=== PATIENT | female | born 1975 | race Caucasian/White ===

== ENCOUNTER 2017-01-26 06:00 | Inpatient (IN) | payer BC ==
[2017-01-26] MEDS ORDERED: TERBUTALINE SULFATE 1 MG/ML VIAL IV PRN (07:39)
[2017-01-26] MEDS ORDERED: OXYTOCIN/RINGERS LACTATE 1,000 ML IV PRN (07:39)
[2017-01-26] MEDS ORDERED: LIDOCAINE 1% 30 ML SDV SC PRN (07:39)
[2017-01-26] MEDS ORDERED: LR 1,000 ML IV PRN (07:39)
[2017-01-26] MEDS ORDERED: OLIVE OIL 118 ML BTL MISC PRN (07:39)
[2017-01-26] MEDS ORDERED: EPSOM SALT 454 GM TP PRN (07:39)
--- NOTE | 2017-01-26 07:43 | OBPROG ---
OBG Progress Note Assessment/Plan: Assessment:cat 1 fhr denies pain no regular contractions 2/50/-2 cephalic at bedside Plan:pitocin per protocol /admit 01/26/17 07:41 Subjective: Denies pain. Non-medicated. Routine requests. Ok for observation with student . - SVE Dilation (cm): 2 Effacement (%): 50 Station: -2 Current Contraction Pattern: Irregular FHR (bpm): 135 FHR Pattern Variability: Moderate FHR Category: 1 - Physical Exam General Appearance: WD/WN, alert, no apparent distress Respiratory: chest non-tender, lungs clear, normal breath sounds Cardiac/Chest: regular rate, rhythm Abdomen: normal bowel sounds Membranes: Intact Extremities: normal range of motion, Lior's sign (negative homens sign) DTR- Lower Extremities: Knee (R): 1+, Knee (L): 1+ Skin: normal color, warm/dry Neuro/Psych: no motor/sensory deficits, alert, normal mood/affect, oriented x 3 ICD10 Worksheet Patient Problems: Problems Problem Status Onset Preeclampsia Acute Vaginal delivery Acute
[2017-01-26] MEDS ORDERED: OXYTOCIN/RINGERS LACTATE 500 ML IV SCH (08:00)
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
[2017-01-26] MEDS ORDERED: LIDOCAINE 1% 30 ML SDV ONE (08:34)
[2017-01-26] MEDS ORDERED: OLIVE OIL 118 ML BTL ONE (08:34)
[2017-01-26] MEDS ORDERED: OXYTOCIN 10 UNIT/ML VIAL ONE (08:35)
[2017-01-26] MEDS ORDERED: TERBUTALINE SULFATE 1 MG/ML VIAL ONE (08:35)
[2017-01-26] MEDS ORDERED: MISOPROSTOL 200 MCG TAB ONE (08:35)
[2017-01-26] MEDS ORDERED: AMMONIA AROMATIC 1 EACH AMP IH ONE (08:35)
[2017-01-26 08:37] LABS: % IMMATURE GRANULYOCYTES 0.7 % (0.0-1.1); ABSOLUTE IMMATURE GRANULOCYTES 0.06 10^3/uL (0.00-0.10); ADD DIFF? NO; ADD MORPH? NO; ADD SCAN? NO; ATYPICAL LYMPHOCYTE FLAG 0 (0-99); FRAGMENT RBC FLAG 0 (0-99); HEMATOCRIT 37.9 % (38.0-47.0); HEMOGLOBIN 13.5 g/dL (12.6-16.3); LEFT SHIFT FLG 0 (0-99); LIPEMIA HEMOLYSIS FLAG 90 (0-99); MEAN CELL HEMOGLOBIN 33.5 pg (27.9-34.1); MEAN CELL HEMOGLOBIN CONCENTR. 35.6 g/dL (32.4-36.7); MEAN PLATELET VOLUME 11.5 fL (8.7-11.7); PLATELET CLUMPS FLAG 0 (0-99); PLATELET COUNT 121 10^3/uL (150-400); RED BLOOD CELL COUNT 4.03 10^6/uL (4.18-5.33); RED CELL DISTRIBUTION WIDTH 12.5 % (11.5-15.2)
--- NOTE | 2017-01-26 11:52 | OBPROG ---
OBG Progress Note Assessment/Plan: Assessment:cat 1 fhr pain at 4 3-5 minutes 2/50/-2 cephalic soft posterior no change/ will recheck in 2h and reattempt to break bag of water just now beginning to feel contractions at bedside pitocin at 12 mu just now feeling pain agreement with POC ambulating intermittantly to assist with labor progress Plan:pitocin per protocol 01/26/17 07:41 01/26/17 11:50 Objective: 01/26/17 08:20 Patient ABO/Rh B POSITIVE 01/26/17 08:20 - SVE Dilation (cm): 2 Effacement (%): 50 Station: -2 Current Contraction Pattern: Regular FHR (bpm): 135 FHR Pattern Variability: Moderate FHR Category: 1 Membranes: Intact ICD10 Worksheet Patient Problems: Problems Problem Status Onset Preeclampsia Acute Vaginal delivery Acute
[2017-01-26 13:51] LABS: ALANINE AMINOTRANSFERASE 56 IU/L (9-52); ALBUMIN 3.4 g/dL (3.5-5.0); ALKALINE PHOSPHATASE 209 IU/L (38-126); ANION GAP 6 mEq/L (8-16); ASPARTATE AMINOTRANSFERASE 48 IU/L (14-46); BILIRUBIN,TOTAL 0.8 mg/dL (0.1-1.4); BILIRUBIN-CONJUGATED 0.4 mg/dL (0.0-0.5); BILIRUBIN-UNCONJUGATED 0.4 mg/dL (0.0-1.1); CALCIUM 8.9 mg/dL (8.5-10.4); CARBON DIOXIDE 20 mEq/l (22-31); CHLORIDE 107 mEq/L (97-110); CREATININE 0.7 mg/dL (0.6-1.0); GLOMERULAR FILTRATION RATE > 60; GLUCOSE 82 mg/dL (70-100); POTASSIUM 4.3 mEq/L (3.5-5.2); SODIUM 133 mEq/L (134-144); TOTAL PROTEIN 6.6 g/dL (6.3-8.2); URIC ACID 3.9 mg/dL (2.5-6.8)
--- NOTE | 2017-01-26 13:52 | OBPROG ---
OBG Progress Note Assessment/Plan: Assessment: 41 y/o @ 39 weeks IOL secondary to AMA, proteinuria and h/o HELLP syndrome Plan: AROM now for clear fluid, pt is laboring well. Continue pitocin, awaiting PIH labs, BP stable and status is reassuring. 01/26/17 13:50 Subjective: Pt is doing well, beginning to feel more intense contractions. Objective: 01/26/17 08:20 Patient ABO/Rh B POSITIVE 01/26/17 08:20 BP stable - SVE Dilation (cm): 2 Effacement (%): 75 Station: -2 Current Contraction Pattern: Regular (Q 3-4) FHR (bpm): 140 FHR Pattern Variability: Moderate FHR Category: 1 Membranes: AROM Amniotic Fluid Color: Clear ICD10 Worksheet Patient Problems: Problems Problem Status Onset Preeclampsia Acute Vaginal delivery Acute
--- NOTE | 2017-01-26 17:21 | OBPROG ---
OBG Progress Note Assessment/Plan: Assessment: 41 y/o @ 39 weeks IOL secondary to AMA, proteinuria and h/o HELLP syndrome Plan: Pt is laboring well and making good cervical change. status is reassuring. BP stable, LFT's are slightly elevated as they have been for the last few weeks, not 2x normal. 01/26/17 13:50 01/26/17 17:20 Subjective: Pt is doing well coping with contractions that are regular and intense. She is feeling pelvic pressure and occasional urge to push. Objective: 01/26/17 08:20 01/26/17 12:30 Patient ABO/Rh B POSITIVE 01/26/17 08:20 Uric Acid 3.9 mg/dL (2.5-6.8) 01/26/17 12:30 Total Bilirubin 0.8 mg/dL (0.1-1.4) 01/26/17 12:30 Conjugated Bilirubin 0.4 mg/dL (0.0-0.5) 01/26/17 12:30 Unconjugated Bilirubin 0.4 mg/dL (0.0-1.1) 01/26/17 12:30 AST 48 IU/L (14-46) H 01/26/17 12:30 ALT 56 IU/L (9-52) H 01/26/17 12:30 - SVE Dilation (cm): 6 Effacement (%): 90 Station: 0 Current Contraction Pattern: Regular (Q 2-4) FHR (bpm): 140 FHR Pattern Variability: Moderate FHR Category: 1 (occ early decels) Membranes: AROM Amniotic Fluid Color: Clear ICD10 Worksheet Patient Problems: Problems Problem Status Onset Preeclampsia Acute Vaginal delivery Acute
[2017-01-26] MEDS: IBUPROFEN 600 MG TAB PO PRN (18:58)
--- NOTE | 2017-01-26 19:02 | OBPROC ---
- Labor and Delivery Onset of Contractions Date: 01/26/17 Onset of Contractions Time: 08:45 Onset of Contractions Type: Induced Rupture of Membranes Date: 01/26/17 Rupture of Membranes Time: 13:44 Rupture of Membranes Type: Artificial Amniotic Fluid Color: Clear Dilation Complete Time: 18:15 Delivery Type: Spontaneous Placenta Delivery Date: 01/26/17 Placenta Delivery Time: 18:24 Episiotomy/Laceration: 1st Degree, Perineal Repair: 3-0, Vicryl EBL: 200 Complications: Nuchal Cord (loose x 1) - Medications Labor Augmentation/Induction Meds Used: Pitocin Labor Augmentation/Induction Indication: Other (Specify) (AMA, proteinuria and h /o HELLP with G2) Anesthesia: Local (Specify) (1% liodocaine) - Info A Delivery Date: 01/26/17 Delivery Time: 18:20 Sex of : Female [place] Weight (gm): 3657.088 g Score (1 Min): 6 Score (5 Min): 7 Score (10 Min): 9
[2017-01-26 23:09] VITALS: RESP 16
[2017-01-27] MEDS: IBUPROFEN 600 MG TAB PO PRN ×4 (01:02→20:01)
--- NOTE | 2017-01-27 12:40 | SOAPPROG ---
SOAP Progress Note Assessment/Plan: Assessment: PPD 1 s/p , P3 Plan: Doing well 01/27/17 12:38 Subjective: Pt doing well. Bld is lessened. Mod cramps controlled by ibu. urinating fine. Baby is latching well. other kids visited last noc. Perineum doing ok. Objective: Vital Signs Temp Pulse Resp BP Pulse Ox 36.6 C 73 16 113/74 96 01/27/17 07:40 01/27/17 07:40 01/27/17 07:40 01/27/17 07:40 01/26/17 23:08 Laboratory Results 01/26/17 08:20 01/26/17 12:30 01/26/17 01/27/17 01/28/17 05:59 05:59 05:59 Output Total 200 Balance -200 Physical Exam - Physical Exam General Appearance: WD/WN Abdomen: non-tender, soft, other (FF at umb -2) Pelvic Exam: vaginal bleeding (normal lochia) Extremities: non-tender, pedal edema (mild) Neuro/Psych: normal mood/affect ICD10 Worksheet Patient Problems: Problems Problem Status Onset Preeclampsia Acute Vaginal delivery Acute
[2017-01-27 21:12] VITALS: BP 104/62; PULSE 63; TEMP 98.3; O2SAT 97
[2017-01-28] MEDS: IBUPROFEN 600 MG TAB PO PRN ×2 (04:32→10:32)
[2017-01-28] MEDS ORDERED: MEASLES,MUMPS&RUBELLA VACC/PF 0.5 ML VIAL SC ONE (09:04)
--- NOTE | 2017-01-28 09:04 | SOAPPROG ---
SOAP Progress Note Assessment/Plan: Assessment: ppd# 2 s/p breast feeding Plan: routine post care and discharge instructions 01/28/17 09:02 Subjective: patient is doing great. pain is well controlled. normal lochia. breast feeding is going well. minimal cramping with breast feeding. denies headache and changes in vision. ready to go home. Objective: Vital Signs Temp Pulse Resp BP Pulse Ox 36.8 C 63 16 104/62 97 01/27/17 21:12 01/27/17 21:12 01/27/17 21:12 01/27/17 21:12 01/27/17 21:12 Laboratory Results 01/26/17 08:20 01/26/17 12:30 01/27/17 01/28/17 01/29/17 05:59 05:59 05:59 Output Total 200 Balance -200 Physical Exam - Physical Exam General Appearance: WD/WN, alert, no apparent distress Respiratory: chest non-tender, lungs clear, normal breath sounds Cardiac/Chest: normal peripheral pulses, regular rate, rhythm Abdomen: normal bowel sounds, non-tender, soft Skin: normal color, warm/dry Extremities: normal range of motion, non-tender, normal inspection, normal capillary refill Neuro/Psych: no motor/sensory deficits, alert, normal mood/affect, oriented x 3 ICD10 Worksheet Patient Problems: Problems Problem Status Onset Preeclampsia Acute Vaginal delivery Acute
[2017-01-28] MEDS ORDERED: TDAP ADULT 0.5 ML INJ (BOOSTRIX) IM ONE (11:08)
== END 2017-01-28 12:25 | disposition home or self-care (01) | DRG 775 ==
LOC: FLD 07:00 → FOB 21:01
PROVIDERS: ADMIT Advanced Practice Midwife; ATTEND Obstetrics & Gynecology
DX: O70.0 First degree perineal laceration during delivery (principal); O69.81X0 Labor and delivery complicated by cord around neck, without compression, not applicable or unspecified; O09.523 Supervision of elderly multigravida, third trimester; Z37.0 Single live birth; Z3A.39 39 weeks gestation of pregnancy
CPT/HCPCS: J2590; J3105